=== PATIENT | male | born 1960 | race Caucasian/White ===

== ENCOUNTER → 2020-07-21 | Outpatient (CLI) | payer BC ==
--- NOTE | 2020-07-21 12:34 | MR ---
EXAMINATION TYPE: MR knee LT wo con DATE OF EXAM: 07/21/2020 COMPARISON: None HISTORY: Pain in left knee TECHNIQUE: Multiplanar, multisequence imaging of the left knee is performed without IV contrast. FINDINGS: MEDIAL MENISCUS: Anterior and posterior horns are intact without tear. Some increased signal within t he posterior horn of the medial meniscus does not extend to the articular surface may be degenerative change LATERAL MENISCUS: Anterior horn of the lateral meniscus shows some increased signal, there is a dimin utive appearance, sagittal image #10 shows suspected signal extending to the articular surface at the periphery laterally, coronal image #19 and shows some linear increased signal extending to the media l margin. Posterior horn shows at the medial margin some linear increased signal which may contact th e articular surface towards the root anchor. CRUCIATE LIGAMENTS: The anterior and posterior cruciate ligaments are intact and unremarkable. COLLATERAL LIGAMENTS: The medial collateral ligament and lateral collateral ligament complex are inta ct and unremarkable. EXTENSOR MECHANISM: Visualized quadriceps and patellar tendons are intact. EFFUSION: Small suprapatellar joint effusion is present POPLITEAL CYST: No popliteal/nielsen cyst. TRICOMPARTMENT SPACES: Maintained, there is some tricompartmental marginal spurring CARTILAGE: There is grade 2 to grade III chondromalacia present at the posterior patella, medial comp artment and lateral compartment BONE MARROW SIGNAL: No focal abnormal marrow signal is appreciated. OTHER: Subcutaneous edema is present anteriorly along the level of the anterior margin of the proxim al leg anterior to the patellar ligament consistent with soft tissue edema IMPRESSION: Osteoarthritis. Joint effusion. Possible degenerative tear of the lateral meniscus periph erally, possible some marginal fraying is present. Soft tissue swelling.
== END | disposition home or self-care (01) ==
LOC: RADMRIMAIN 10:32
PROVIDERS: ATTEND Family Medicine
DX: M17.12 Unilateral primary osteoarthritis, left knee (principal)

== ENCOUNTER → 2020-08-09 | Outpatient (CLI) | payer BC ==
[2020-08-09 18:25] LABS: Chol/HDL Ratio 4.8; LDL Cholesterol,Calculated 119.8 mg/dL (0.0-131.0); VLDL Calculation 36.2 mg/dL (5.00-40.00)
== END | disposition home or self-care (01) ==
LOC: LABWHC1 08:33
PROVIDERS: ATTEND Family Medicine
DX: Z12.5 Encounter for screening for malignant neoplasm of prostate (principal); E78.00 Pure hypercholesterolemia, unspecified
CPT/HCPCS: 36415; 80061; 84403

== ENCOUNTER → 2020-08-09 | Outpatient (CLI) | payer BC ==
[2020-08-09 09:59] LABS: Basophils % (A) 1 %; Eosinophils # (A) 0.1 k/uL (0-0.7); Eosinophils % (A) 2 %; HCT 45.2 % (39.0-53.0); HGB 14.6 gm/dL (13.0-17.5); Lymphocytes # (A) 1.7 k/uL (1.0-4.8); Lymphocytes % (A) 30 %; MCH 26.7 pg (25.0-35.0); MCHC 32.2 g/dL (31.0-37.0); MCV 82.7 fL (80.0-100.0); Mean Platelet Volume 6.4; Monocytes # (A) 0.4 k/uL (0-1.0); Monocytes % (A) 7 %; Neutrophils # (A) 3.4 k/uL (1.3-7.7); Neutrophils % (A) 59 %; Platelet Count 312 k/uL (150-450); RBC 5.47 m/uL (4.30-5.90); RDW 13.7 % (11.5-15.5); WBC 5.9 k/uL (3.8-10.6)
[2020-08-09 10:17] LABS: Potassium 4.4 mmol/L (3.5-5.1)
== END | disposition home or self-care (01) ==
LOC: LABPAT 08:30
PROVIDERS: ATTEND Orthopaedic Surgery
DX: Z01.812 Encounter for preprocedural laboratory examination (principal); M23.92 Unspecified internal derangement of left knee
CPT/HCPCS: 80051; 85025; 93005

== ENCOUNTER 2020-08-11 09:33 | Day surgery (SDC) | payer BC ==
[2020-08-09 11:33] VITALS: BMI 31.6
[~2020-08-11 09:33] MED LIST: LACTATED RINGERS 1,000 ML IV SCH; LIDOCAINE 1% (10MG/ML) FOR IV START INTRADERMA PRN
[2020-08-11 10:12] VITALS: RESP 16; TEMP 98.6
[2020-08-11] MEDS ORDERED: GLUCAGON 1 MG/ML VIAL ONE (11:06)
[2020-08-11] MEDS ORDERED: LIDOCAINE 1% INJ 10MG/ML (20 ML MDV) ONE (11:06)
[2020-08-11] MEDS ORDERED: PROPOFOL 10 MG/ML 20 ML VIAL IV ONE (11:06)
[2020-08-11] MEDS ORDERED: MIDAZOLAM 2 MG/2 ML VIAL ONE (11:06)
--- NOTE | 2020-08-11 11:13 | P.GSHP ---
History of Present Illness H&P Date: 08/11/20 Chief Complaint: Screening colonoscopy 60-year-old male presents today for screening colonoscopy. He denies any significant GI complaints patient has previous history of colon polyps. His last colonoscopy is a complete due to spasm of the bowel. Past Medical History Past Medical History: GERD/Reflux, Hyperlipidemia Additional Past Medical History / Comment(s): hx of colon polyps, current torn [facility] states awaiting sx on 09/01/20, hx Herniated Disc, prev hx of HTN no longer taking rx History of Any Multi-Drug Resistant Organisms: None Reported Past Surgical History: Hernia Repair, Orthopedic Surgery Additional Past Surgical History / Comment(s): mult hernia repair, surgery for BROKEN LEFT FEMUR, colonoscopy, EGD Past Anesthesia/Blood Transfusion Reactions: No Reported Reaction Smoking Status: Former smoker - Past Family History Mother Family Medical History: Cancer Additional Family Medical History / Comment(s): breast Father Family Medical History: Cancer Medications and Allergies Home Medications Medication Instructions Recorded Confirmed Type Ibuprofen [Motrin] 800 mg PO BID PRN 08/09/15 08/09/20 History Atorvastatin [Lipitor] 20 mg PO DAILY 05/13/18 08/09/20 History Omeprazole [PriLOSEC] 10 mg PO DIRECTED PRN 08/09/20 08/09/20 History Allergies Allergy/AdvReac Type Severity Reaction Status Date / Time buspirone HCl [From BuSpar] AdvReac Severe SEVERE Verified 08/11/20 10:12 [facility] - Exam Vital Signs Temp Pulse Resp BP Pulse Ox 98.6 F 80 16 146/92 97 08/11/20 10:11 08/11/20 10:11 08/11/20 10:11 08/11/20 10:11 08/11/20 10:11 - General well developed, well nourished, no distress - Eyes PERRL - ENT normal pinna - Neck no masses - Respiratory normal expansion - Cardiovascular Rhythm: regular - Abdomen Abdomen: soft, non tender Assessment and Plan Assessment: History: Polyps. We'll perform colonoscopy.
--- NOTE | 2020-08-11 11:26 | P.OP ---
Date of Procedure: 08/11/20 Preoperative Diagnosis: History of colon polyps Postoperative Diagnosis: Normal Colonoscopy Procedure(s) Performed: Colonoscopy Anesthesia: MAC Surgeon: Benson Cali Pathology: none sent Condition: stable Disposition: PACU Description of Procedure: PROCEDURE: The patient was placed on the endoscopy table in the lateral position. Digital rectal examination was performed which revealed no abnormalities. The prostate was symmetrical without nodules. Flexible colonoscope was then placed in the patient's anus and passed throughout the entire colon. The ileocecal valve was visualized. The cecum, ascending, transverse, descending and sigmoid colon were normal. The rectum was normal as well. There were no masses, polyps or diverticula noted in the entire colon. SUMMARY OF FINDINGS: Normal colonoscopy.
[2020-08-11 12:28] VITALS: BP 112/67; PULSE 68
== END 2020-08-11 12:40 | disposition home or self-care (01) ==
LOC: ORWHC2ENDO 09:33
PROVIDERS: ATTEND Surgery
DX: Z12.11 Encounter for screening for malignant neoplasm of colon (principal); K21.9 Gastro-esophageal reflux disease without esophagitis; E78.5 Hyperlipidemia, unspecified; Z86.010 Personal history of colon polyps; Z98.890 Other specified postprocedural states; Z79.899 Other long term (current) drug therapy; Z88.8 Allergy status to other drugs, medicaments and biological substances
CPT/HCPCS: J2250; J1610; J2001; J2704; G0121

== ENCOUNTER 2020-09-01 09:24 | Day surgery (SDC) | payer BC ==
[2020-08-12 15:42] VITALS: BMI 32.7
--- NOTE | 2020-09-01 08:22 | HP ---
HISTORY AND PHYSICAL REASON FOR ADMISSION: Surgery 09/01/2020. Krish Jiang is a 60-year-old gentleman seen with progressive left knee pain. We discussed options. He elected to proceed with arthroscopy. Consent was obtained. PAST MEDICAL HISTORY: Hyperlipidemia. PAST SURGICAL HISTORY: Herniorrhaphy, ORIF femur fracture. DAILY MEDICATIONS: Atorvastatin and ibuprofen. ALLERGIES: None. SOCIAL HISTORY: Denies current tobacco use. PHYSICAL EXAMINATION: Evaluation of the left knee: Range of motion 0 to 130. There is a mild effusion. Tenderness along the medial and lateral joint line. Positive medial Ann-Marie's. Positive lateral Ann-Marie's. Ligaments stable. Hip rotation without pain. Distal neurovascular exam is intact. RADIOGRAPHS: Radiographs of the left knee revealed moderate osteoarthritis of the left knee. MRI revealed lateral meniscal tear, osteoarthritis and intraarticular effusion. IMPRESSION: 1. Internal derangement of left knee with lateral meniscal tear. 2. Left knee osteoarthritis. 3. Hyperlipidemia. PLAN: Left knee arthroscopy with partial lateral meniscectomy and debridement. MMODL / IJN: [id number] /
[~2020-09-01 09:24] MED LIST changes: +DEXAMETHASONE SOD PHOSPHATE 4 MG/ML 1 ML VIAL IV ONE; -LIDOCAINE 1% (10MG/ML) FOR IV START INTRADERMA PRN; +ONDANSETRON 4 MG/2 ML VIAL IVP ONE
[2020-09-01] MEDS ORDERED: LIDOCAINE 1% (10MG/ML) FOR IV START INTRADERMA ONE (10:00)
[2020-09-01] MEDS ORDERED: SUCCINYLCHOLINE CHLORIDE 100 MG/5 ML SYR IV ONE (10:11)
[2020-09-01] MEDS ORDERED: BUPIVACAINE (PF) 0.25% 30 ML VIAL SQ ONE ×2 (10:11→10:45)
[2020-09-01] MEDS ORDERED: LIDOCAINE 1% INJ 10MG/ML (20 ML MDV) ONE (10:11)
[2020-09-01] MEDS ORDERED: MIDAZOLAM 2 MG/2 ML VIAL ONE (10:11)
[2020-09-01] MEDS ORDERED: PROPOFOL 10 MG/ML 20 ML VIAL IV ONE (10:11)
[2020-09-01] MEDS ORDERED: fentaNYL (PF) 50 MCG/ML 2 ML AMP ONE (10:11)
[2020-09-01] MEDS ORDERED: KETOROLAC 15 MG/ML 1 ML VIAL ONE (10:11)
[2020-09-01 11:00] VITALS: TEMP 96.8
--- NOTE | 2020-09-01 11:01 | P.OP ---
Date of Procedure: 09/01/20 Preoperative Diagnosis: Internal derangement left knee Postoperative Diagnosis: 1. Tear lateral meniscus left knee 2. Reactive synovitis medial, lateral and suprapatellar compartments left knee Procedure(s) Performed: 1. Arthroscopic partial lateral meniscectomy left knee 2. Arthroscopic partial synovectomy medial, lateral and suprapatellar compartments left knee Anesthesia: BRENDA, local Surgeon: Glenroy Saavedra Estimated Blood Loss (ml): 7 Pathology: none sent Condition: stable Disposition: PACU Indications for Procedure: 60-year-old patient seen with progressive left knee pain. After having treatment options discussed, he elected to proceed with arthroscopy. Operative Findings: See description of procedure Description of Procedure: Patient was taken to the operative suite. Patient underwent a general anesth etic by the department of anesthesia. Patient was given preoperative antibiotics. The left lower extremity was placed in a well-padded arthroscopic leg foster. The left leg was prepped and draped in the normal sterile orthopedic fashion. A lateral parapatellar and suprapatellar incision was made. Trochars were inserted. Arthroscopy was initiated. Suprapatellar pouch revealed diffuse thick reactive synovitis. The patellofemoral joint appeared equally congruently. There was grade 2 chondromalacia of the patella with no osteochondral tears present. The scope was guided into the medial gutter. No loose bodies or plica were identified. The scope was then guided into the medial compartment. A medial parapatellar incision was made. Trocar inserted followed by probe. The medial meniscus was probed and found to be stable. There were some grade 1 chondral malacia changes of the medial compartment. There was some reactive synovitis anteriorly. A motorize shaver was introduced and partial synovectomy was performed. The shaver was removed. There was good decompression synovitis. Scope and probe were then guided into the intercondylar notch. Cruciates were identified, probed and found to be stable. The scope and probe were then guided into lateral compartment. There was a large complex tear involving the anterior horn and midbody lateral meniscus. There was thick reactive synovitis anteriorly. There were grade 1 chondromalacia changes. I performed a partial lateral meniscectomy getting down to stable meniscal tissue. I performed a partial synovectomy decompressing the reactive synovitis. The residual meniscus was stable. There was good decompression of the synovitis. The scope was in guided back into the suprapatellar compartment. I introduced a motorized shaver into the superpatellar compartment. I debrided some piecemeal fragments of meniscus I encountered. I performed a partial synovectomy. Shaver was removed. There was good decompression of synovitis. Instruments were now removed from the joint. The joint was infiltrated with .25% Marcaine. Steri-Strips were applied to the portal sites. Sterile dressings were applied. The patient was placed into a MYKE hose. No tourniquet was utilized. The patient was awakened, transferred to a bed and taken to recovery stable satisfactory condition.
[2020-09-01] MEDS: HYDROmorphone 0.5 MG/0.5 ML SYRINGE IVP PRN ×3 (11:25→11:45)
[2020-09-01] MEDS ORDERED: LACTATED RINGERS 1,000 ML IV ONE (11:34)
[2020-09-01 11:41] VITALS: RESP 16
[2020-09-01] MEDS ORDERED: HYDROcodone/APAP 7.5-325MG 1 EACH TAB ONE (12:00)
[2020-09-01] MEDS ORDERED: HYDROcodone/APAP 7.5-325MG 1 EACH TAB PO ONE (12:01)
[2020-09-01 12:31] VITALS: BP 146/93; PULSE 67
== END 2020-09-01 12:41 | disposition home or self-care (01) ==
LOC: OR 09:24
PROVIDERS: ATTEND Orthopaedic Surgery
DX: M23.201 Derangement of unspecified lateral meniscus due to old tear or injury, left knee (principal); M65.862 Other synovitis and tenosynovitis, left lower leg; M17.12 Unilateral primary osteoarthritis, left knee; E78.5 Hyperlipidemia, unspecified; I10 Essential (primary) hypertension; K21.9 Gastro-esophageal reflux disease without esophagitis; Z98.890 Other specified postprocedural states; Z97.2 Presence of dental prosthetic device (complete) (partial); Z79.1 Long term (current) use of non-steroidal anti-inflammatories (NSAID); Z79.899 Other long term (current) drug therapy
CPT/HCPCS: 29881; 29876; J2250; J1100; J0690; J2405; J2001; J3010; J1885; J0330; J2704; J1170

== ENCOUNTER → 2021-08-31 | Outpatient (CLI) | payer BC ==
--- NOTE | 2021-09-03 12:23 | CTL ---
EXAMINATION TYPE: CT Low Dose Lung DATE OF EXAM ORDERED: 08/31/2021 HISTORY: Nicotine dependence. Lung cancer screening CT DLP: 159.[address] CTDI: 4.0 mGy Automated exposure control for dose reduction was used. SCREENING VISIT: Baseline COMPARISON: No previous CT scan is available for comparison. TECHNIQUE: Low dose computed tomography scan was performed through the chest at 1 mm thick sections a nd reconstructed images in multiple planes at 1 mm and [address] DIAGNOSTIC QUALITY: Satisfactory FINDINGS: LUNG NODULES: None. LUNGS: COPD: Severity: Mild Fibrosis: Severity: None Lymph nodes: No pathologically enlarged lymph nodes. Other findings: None RIGHT PLEURAL SPACE: Effusion: None Calcification: None Thickening: None Pneumothorax: None LEFT PLEURAL SPACE: Effusion: None Calcification: None Thickening: None Pneumothorax: None HEART: Heart Size: Normal Coronary Calcification: Moderate to marked Pericardial Effusion: None OTHER FINDINGS: Upper abdomen: None Bony thorax: None Supraclavicular region: Slightly enlarged thyroid gland, please correlate with thyroid function tests . Other: Scattered arterial atherosclerotic calcifications. IMPRESSION: No definite lung nodule or suspicious lesion. Incidental findings as described above. CT LUNG RAD AND CT CHEST RECOMMENDATION: Lung-Rad 1 Negative: Continue annual screening with LDCT in 12 months. S Modifier (other clinically significant findings): None
== END | disposition home or self-care (01) ==
LOC: RADCTMAIN 16:49
PROVIDERS: ATTEND Family Medicine
DX: Z12.2 Encounter for screening for malignant neoplasm of respiratory organs (principal); Z87.891 Personal history of nicotine dependence
CPT/HCPCS: 71271

== ENCOUNTER 2021-12-27 07:47 | Day surgery (SDC) | payer BC ==
[~2021-12-27 07:47] MED LIST changes: +ALPRAZolam 0.25 MG TAB PO PRN; +ALPRAZolam 0.5 MG TAB PO PRN; +ASPIRIN 325 MG TAB PO STA; +ATORVASTATIN 80 MG TAB PO STA; -DEXAMETHASONE SOD PHOSPHATE 4 MG/ML 1 ML VIAL IV ONE; +HEPARIN SODIUM,PORCINE 10,000 UNIT in SODIUM CHLORIDE 0.9% 1,000 ML IRRIGATION PRN; +HEPARIN SODIUM,PORCINE 2,500 UNIT in SODIUM CHLORIDE 0.9% 250 ML IRRIGATION PRN; -LACTATED RINGERS 1,000 ML IV SCH; +NITROGLYCERIN SL TABS 0.4 MG TAB SUBLINGUAL PRN; -ONDANSETRON 4 MG/2 ML VIAL IVP ONE; +SODIUM CHLORIDE 0.9% 1,000 ML in EMPTY BAG 1 BAG IV SCH
[2021-12-27 08:11] VITALS: RESP 18
[2021-12-27] MEDS ORDERED: LIDOCAINE 1% INJ 10MG/ML (30 ML VIAL-PF) SQ ONE ×2 (09:05→09:09)
[2021-12-27] MEDS ORDERED: fentaNYL (PF) 50 MCG/ML 2 ML AMP IV ONE (09:05)
[2021-12-27] MEDS ORDERED: VERAPAMIL SYRINGE (5 MG/10 ML) INTRAARTER ONE (09:10)
[2021-12-27] MEDS ORDERED: MIDAZOLAM 2 MG/2 ML VIAL IV ONE (09:10)
[2021-12-27] MEDS: HEPARIN SODIUM 1,000 UN/ML (10ML VL) IV ONE ×4 (09:17→10:12)
[2021-12-27] MEDS ORDERED: CLOPIDOGREL 75 MG TAB PO ONE (09:37)
[2021-12-27] MEDS ORDERED: IOPAMIDOL-370 125ML BTL INJ ONE (09:51)
[2021-12-27] MEDS ORDERED: IOPAMIDOL-370 100ML BTL INJ ONE ×2 (10:08)
[2021-12-27] MEDS ORDERED: MAG HYDROX/AL HYDROX/SIMETH 30 ML CUP PO PRN (10:20)
[2021-12-27] MEDS ORDERED: RX INFO: IV CONTRAST WAS GIVEN 1 EACH MISC MISCELLANE PRN (10:20)
[2021-12-27] MEDS ORDERED: ZOLPIDEM 5 MG TAB PO PRN (10:20)
[2021-12-27] MEDS ORDERED: NITROGLYCERIN SL TABS 0.4 MG TAB SUBLINGUAL PRN (10:20)
[2021-12-27] MEDS ORDERED: ATROPINE SULFATE 0.1 MG/ML 10ML SYRINGE IV PRN (10:20)
[2021-12-27] MEDS ORDERED: SODIUM CHLORIDE 0.9% 1,000 ML in EMPTY BAG 1 BAG IV SCH (10:30)
--- NOTE | 2021-12-27 10:32 | P.CARDCATH ---
Date of Procedure: 12/27/21 Description of Procedure: Cardiac Catheterization: The patient is a 61-year-old male with a known history of hypertension and hyperlipidemia who had an abnormal MPI and has been experiencing dyspnea on exertion. Recommendations were made regarding cardiac catheterization, the risks and the complications were discussed with the patient who is in full understanding and agreement. 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 Using Xylocaine Anesthesia and Seldinger technique, a 6-Omani sheath was introduced in the right radial artery . Subsequently, selective coronary angiography was performed using a 5-Omani 3.5 bend Lesley catheter. Multiple views of the coronary artery including hemiaxial views were obtained. The left Lesley catheter was used to cross the aortic valv e and LVEDP was calculated. Following that a 6-Omani 0.75 AL guiding catheter was introduced and the ostium of the RCA was cannulated. A 0.014 balanced medium weight J wire was advanced and positioned distally subsequently 3.0 x 12 mm NC Treck balloon was advanced and one inflation at 10 james was done, a 4.0 x 23 mm Xience wm point stent was advanced and deployed at 16 james after removing the balloon and IVUS [place] eye [place] catheter was introduced and images were performed, after removing the catheter a 4.5 x 15 mm NC Treck balloon was advanced into inflation at 12 james were performed. Following that, catheter and sheath were removed. Hemostasis was obtained with deployment of TR band . There was no immediate complication. Patient was returned to room in stable condition. Of note, the patient received a total of 9000 units of intravenous heparin as well as intra-arterial verapamil. He received a loading dose of clopidogrel, his ACT was monitored. He had no chest discomfort or EKG changes with the inflation. During the procedure attempt to perform a Doppler evaluation was unsuccessful because of failure of the instrument. Findings: Left main: This is a large size vessel, bifurcating into LAD and left circumflex, left main has no high-grade stenosis LAD: This is a large size vessel, tapers down in the distal third, gives rise to 2 diagonal branch, the LAD has mild disease of 10-20% in the midsegment Left circumflex: This is a nondominant vessel, giving rise to a large obtuse marginal branch, the proximal left circumflex has 20% plaque the rest of the vessel has no high-grade stenosis RCA: This is a large dominant vessel, bifurcating into PDA and PLV, the proximal RCA has an eccentric 60-70% stenosis with evidence of an ulcerated plaque, the PLV has a 50% plaque, the rest of the vessel has no high-grade stenosis Left Ventriculogram: Not performed Hemodynamics: There was no gradient across the aortic valve , LVEDP was 20-22 mmHg Conclusion: 1. Significant disease in the proximal RCA with evidence of an ulcerated plaque 2. Successful stenting of the proximal RCA with reduction of the stenosis from 70% to less than 5% 3. IVUS imaging 4. Mild disease in the LAD and left circumflex Recommendations: Have recommended dual antiplatelet treatment with aspirin and clopidogrel for 6 months, aggressive coronary risk modification. The findings and the rec ommendations were discussed with the patient and the family and they were in full understanding and agreement. Duration of sedation is 58 minutes.
[2021-12-27 14:14] VITALS: BP 149/84; PULSE 68
[2021-12-28] MEDS ORDERED: ASPIRIN 81 MG PO SCH (09:00)
[2021-12-28] MEDS ORDERED: ATORVASTATIN 40 MG TAB PO SCH (09:00)
[2021-12-28] MEDS ORDERED: CLOPIDOGREL 75 MG TAB PO SCH (09:00)
[2021-12-28] MEDS ORDERED: METOPROLOL TARTRATE 25 MG TAB PO SCH (09:00)
== END 2021-12-27 14:50 | disposition home or self-care (01) ==
LOC: CATHCVL 07:47
PROVIDERS: ATTEND Internal Medicine Interventional Cardiology
DX: I25.10 Atherosclerotic heart disease of native coronary artery without angina pectoris (principal); I10 Essential (primary) hypertension; E78.5 Hyperlipidemia, unspecified; Z79.890 Hormone replacement therapy; Z79.899 Other long term (current) drug therapy
CPT/HCPCS: 92978; 93458; C9600; C1769 ×3; C1887; C1894; C1725 ×2; C1753; C1874 ×2; J2250; J2001; J3010; J1644; Q9967 ×2

== ENCOUNTER → 2023-03-27 | Outpatient (CLI) | payer BC ==
[2023-03-27 11:19] LABS: ALT 29 U/L (10-49); AST 19 U/L (14-35); Chol/HDL Ratio 5.67 Ratio; LDL Cholesterol,Calculated 171.7 mg/dL (0.0-131.0)
== END | disposition home or self-care (01) ==
LOC: LABWHC1 07:48
PROVIDERS: ATTEND Nurse Practitioner Adult Health
DX: E78.2 Mixed hyperlipidemia (principal)
CPT/HCPCS: 36415; 80061; 84450; 84460

== ENCOUNTER → 2023-05-17 | Outpatient (CLI) | payer BC ==
--- NOTE | 2023-05-17 16:10 | CTL ---
EXAMINATION TYPE: CT Low Dose Lung DATE OF EXAM ORDERED: 05/17/2023 HISTORY: Lung cancer screening CT DLP: 102.[address] CTDI: 2.6 mGy Automated exposure control for dose reduction was used. SCREENING VISIT: Second COMPARISON: 08/31/2021 TECHNIQUE: Low dose computed tomography scan was performed through the chest at 1 mm thick sections a nd reconstructed images in multiple planes at 1 mm and [address] DIAGNOSTIC QUALITY: Satisfactory FINDINGS: There is a stable calcified granuloma in the right middle lobe. There are no new or suspicious lung m asses or nodules. There is no abnormal airspace/consolidative density or abnormal interstitial density. There is no bro nchiectasis. There is no pleural effusion, pleural thickening or pneumothorax. There is aneurysmal dilatation of ascending thoracic aorta which measures 4.1 cm. There is no mediastinal, hilar or axillary adenopathy. Limited scanning through the upper abdomen reveals no gross abnormality. No focal osseous lesions are seen. IMPRESSION: 1. Lung metastases category 2, benign. Continue routine screening yearly intervals. 2. No acute cardiac disease. 3. 4.1 cm aneurysmal dilatation of ascending thoracic aorta.
== END | disposition home or self-care (01) ==
LOC: RADCTMAIN 14:49
PROVIDERS: ATTEND Family Medicine
DX: Z12.2 Encounter for screening for malignant neoplasm of respiratory organs (principal); Z87.891 Personal history of nicotine dependence; C78.00 Secondary malignant neoplasm of unspecified lung; I71.20 Thoracic aortic aneurysm, without rupture, unspecified
CPT/HCPCS: 71271

== ENCOUNTER → 2024-04-06 | Outpatient (CLI) | payer BC ==
--- NOTE | 2024-04-07 06:20 | MR ---
EXAMINATION TYPE: MR shoulder RT wo con DATE OF EXAM: 04/06/2024 7:39 PM COMPARISON: Outside right shoulder x-ray March 31, 2024 CLINICAL INDICATION: Male, 63 years old with history of M25.511, Right shoulder pain. Difficulty rais ing arm overhead. IV Contrast: cc (None if empty) TECHNIQUE: Multiplanar, multisequence imaging of the right shoulder is performed without contrast. FINDINGS: Rotator Cuff: Slight increased signal in the supraspinatus tendon. More prominent increased signal in the infraspinatus tendon with some surrounding fluid near the myotendinous junction anteriorly. Hete rogeneous increased signal but intact subscapularis tendon. Rotator cuff muscle bulk is preserved. Acromioclavicular Joint: Mild to moderate narrowing with subchondral cystic change. Moderate capsular hypertrophy. Loss of underlying fat plane is noted. Glenohumeral Joint: Small joint effusion. No significant spurring. Labrum: Increased signal superior labrum suggests degenerative tear. Biceps Tendon: The long head of biceps is in normal location within bicipital groove. Bone marrow signal: Subchondral cystic change at the acromioclavicular joint. Other: No additional significant abnormality is appreciated. IMPRESSION: 1. Mild tendinosis of supraspinatus tendon. More prominent tendinosis of subscapularis and infraspina tus tendons. 2. Moderate AC joint arthropathy with suggestion of underlying impingement, correlate clinically. 3. Degenerative superior labral tear. [facility], , 04/07/2024 6:17 AM
== END | disposition home or self-care (01) ==
LOC: RADMRIMAIN 18:59
PROVIDERS: ATTEND Orthopaedic Surgery
DX: M19.011 Primary osteoarthritis, right shoulder (principal); M67.813 Other specified disorders of tendon, right shoulder; M25.811 Other specified joint disorders, right shoulder

== ENCOUNTER → 2024-05-23 | Outpatient (CLI) | payer BC ==
[2024-05-24 06:48] LABS: Basophils # (A) 0.08 X 10*3/uL (0.00-0.10); Basophils % (A) 1.3 %; Eosinophils # (A) 0.13 X 10*3/uL (0.04-0.35); Eosinophils % (A) 2.1 %; HCT 43.9 % (39.6-50.0); HGB 14.5 g/dL (13.0-17.0); Lymphocytes # (A) 1.77 X 10*3/uL (0.90-5.00); Lymphocytes % (A) 29.1 %; MCH 27.4 pg (27.0-32.0); MCV 82.8 FL (80.0-97.0); Mean Platelet Volume 9.1 FL (9.5-12.2); Monocytes # (A) 0.68 X 10*3/uL (0.20-1.00); Monocytes % (A) 11.2 %; NRBC Per 100 WBC 0 X 10*3/uL (0.00-0.01); Neutrophils # (A) 3.38 X 10*3/uL (1.80-7.70); Neutrophils % (A) 55.6 %; Platelet Count 303 X 10*3/uL (140-440); RDW 13.8 % (11.5-14.5); WBC 6.08 X 10*3/uL (4.50-10.00)
== END | disposition home or self-care (01) ==
LOC: LABWHC1 07:23
PROVIDERS: ATTEND Orthopaedic Surgery
DX: Z01.812 Encounter for preprocedural laboratory examination (principal); M75.41 Impingement syndrome of right shoulder
CPT/HCPCS: 85025

== ENCOUNTER 2024-06-03 05:41 | Day surgery (SDC) | payer BC ==
[2024-06-01 09:05] VITALS: BMI 36.5
--- NOTE | 2024-06-02 12:56 | HP ---
HISTORY AND PHYSICAL Surgery is scheduled for 06/03/2024. HISTORY OF PRESENT ILLNESS: Krish Jiang is a 64-year-old gentleman seen with progressive right shoulder pain. We discussed options regarding treatment. He elected to proceed with right shoulder arthroscopy. Consent regarding the procedure was obtained. Cardiac clearance was provided by Dr. Ritter. PAST MEDICAL HISTORY: Hypertension, hyperlipidemia, cardiovascular disease, aortic aneurysm. PAST SURGICAL HISTORY: Herniorrhaphy, ORIF of femur fracture, cardiac catheterization with stent insertion. DAILY MEDICATIONS: 1. Aspirin. 2. Ibuprofen. 3. Losartan. 4. Omeprazole. 5. Toprol. 6. Zepbound. ALLERGIES: None. SOCIAL HISTORY: Denies tobacco use. PHYSICAL EVALUATION OF THE RIGHT SHOULDER: Flexion is 150 degrees. Abduction is 120 degrees. External rotation is 45 degrees with pain and weakness. He is tender along the anterolateral acromion and rotator cuff insertion. Impingement is positive at 80 degrees. Cross-body adduction sign is positive. Drop-arm sign is positive. Distal neurovascular exam is intact. IMAGING STUDIES: Radiographs of the right shoulder, type 2 acromion, severe acromioclavicular joint osteoarthritis and cystic changes of the tuberosity. Right shoulder MRI, labral tear, acromioclavicular joint osteoarthritis, impingement, rotator cuff tendinitis. IMPRESSION: 1. Right shoulder impingement with labral tear. 2. Right shoulder acromioclavicular joint osteoarthritis. 3. Hypertension. 4. Cardiovascular disease. PLAN: Right shoulder arthroscopy with subacromial decompression, labral debridement versus repair, Davi procedure. MMODL / IJN: [id number] /
[2024-06-03 06:48] LABS: Glucose,Whole Blood 97 mg/dL (70-110)
[2024-06-03] MEDS: ONDANSETRON 4 MG/2 ML VIAL IVP ONE (06:52)
[2024-06-03] MEDS: DEXAMETHASONE SOD PHOSPHATE 4 MG/ML 1 ML VIAL IV ONE (06:52)
[2024-06-03] MEDS: LACTATED RINGERS 1,000 ML IV SCH (06:52)
[2024-06-03] MEDS: IV FLUID CONTINUATION 1,000 ML IV ONE (06:53)
[2024-06-03] MEDS ORDERED: HYDROmorphone 0.5 MG/0.5 ML SYRINGE IVP PRN (07:00)
[2024-06-03] MEDS: MIDAZOLAM 2 MG/2 ML VIAL IVP ONE (07:03)
[2024-06-03] MEDS: fentaNYL (PF) 50 MCG/ML 2 ML AMP IVP ONE (07:18)
[2024-06-03] MEDS ORDERED: ROCURONIUM 10 MG/ML (5 ML VIAL) IV ONE (07:25)
[2024-06-03] MEDS ORDERED: GLYCOPYRROLATE 0.2 MG/ML 2 ML VIAL ONE (07:25)
[2024-06-03] MEDS ORDERED: PHENYLEPHRINE 10 MG/ML VIAL ONE (07:25)
[2024-06-03] MEDS ORDERED: ROPIVACAINE 5 MG/ML 30 ML VIAL ONE (07:25)
[2024-06-03] MEDS ORDERED: DEXAMETHASONE SOD PHOSPHATE 4 MG/ML 1 ML VIAL ONE (07:25)
[2024-06-03] MEDS ORDERED: LIDOCAINE 1% INJ 10MG/ML (20 ML MDV) ONE (07:25)
[2024-06-03] MEDS ORDERED: NEOSTIGMINE 1 MG/ML 10 ML VIAL ONE (07:25)
[2024-06-03] MEDS ORDERED: SUCCINYLCHOLINE CHLORIDE 200 MG/10 ML VIAL IV ONE (07:25)
[2024-06-03] MEDS ORDERED: PROPOFOL 10 MG/ML 20 ML VIAL IV ONE (07:25)
[2024-06-03] MEDS: LACTATED RINGERS 1,000 ML IV ONE (08:50)
--- NOTE | 2024-06-03 09:15 | P.OP ---
Date of Procedure: 06/03/24 Preoperative Diagnosis: Right shoulder impingement Postoperative Diagnosis: 1. Right shoulder rotator cuff tear 2. Right shoulder impingement 3. Right shoulder bicipital tendinitis/partial tear 4. Right shoulder acromioclavicular joint osteoarthritis 5. Right shoulder labral tear Procedure(s) Performed: 1. Right shoulder arthroscopic rotator cuff repair 2. Right shoulder arthroscopic subacromial decompression 3. Right shoulder arthroscopic biceps tenodesis 4. Right shoulder arthroscopic Davi procedure 5. Right shoulder arthroscopic debridement labral tear Implants: 2Arthrex 4.75 swivel lock anchors Anesthesia: GETA, regional (Interscalene block) Surgeon: Glenroy Saavedra Domestic Freight Forwarder #1: Herbie Mckeon Estimated Blood Loss (ml): 8 Pathology: none sent Condition: stable Disposition: PACU Indications for Procedure: 64-year-old gentleman seen with progressive right shoulder pain. After treatment options were discussed, he elected to proceed with arthroscopy. Operative Findings: See description of procedure Description of Procedure: Patient underwent an interscalene block by department of anesthesia. The patient was then taken to the operative suite. The patient underwent a general anesthetic by the department of anesthesia. The patient was placed into a lateral position and secured. There was appropriate padding of the bony prominence. Right shoulder was then prepped and draped in normal sterile orthopedic fashion. We placed the extremity in 10 pounds of longitudinal traction. A posterior incision was now made for a posterior working portal site. The trocar and cannula were inserted into the glenohumeral joint. Arthroscopy was initiated. Spinal needle was now inserted anteriorly, to ascertain the anterior working portal site. An incision was now made in that area, a trocar was inserted followed by a probe. There was superficial tearing of the superior labrum. There was hyperemia and partial tearing long head biceps tendon. There was some grade I chondromalacia changes of the glenoid fossa and the humeral head was unremarkable. At this point I used a motorized shaver debride out the superficial labral tear. At this point I decided to proceed with arthroscopic biceps tenodesis. I placed a cannula through the anterior portal site. I passed a loop and tack type stitch to the biceps tendon. I released the biceps tendon from the superior labral anchor. With the assistance of Reynold MARI punch hole at the interval area. The suture line was not passed through the eyelet of an Arthrex 4.75 swivel lock anchor. I placed the eyelet into the prepunch hole. I held in position while Reynold MARI tensioned the suture and deployed the anchor with good fixation noted. The residual suture limb was clipped. We had a stable appearing biceps tenodesis. I again probed the labrum and it was stable. Instruments were now removed from the glenohumeral joint. Utilizing the posterior working portal site, the trocar and cannula were inserted into the subacromial space. Arthroscopy initiated. I made an incision 2 fingerbreadths lateral to the acromion. I introduced my trocar followed by my ArthroCare ablator. I now began ablating thick subacromial bursal tissue, which exposed the undersurface of the anterior acromion. There was diminished subacromial space. There was a very prominent anterior acromion. A motorized bur was introduced and a subacromial decompression was performed. I also excised some osteophytes off the inferior aspect of the distal clavicle. The AC joint was visualized and noted to be fairly arthritic. The motorized bur was introduced in the anterior portal site and a Davi procedure was performed without difficulty, decompressing the AC joint nicely. I turned my attention to the rotator cuff. There was a 1 cm rotator cuff tear. I debrided the margins getting down to stable tendon tissue. The defect/tear measured just under 1.5 cm and was freely mobile over the footprint. I introduced my motorized bur and abraded the footprint area, getting some petechial bleeding. With the assistance of Reynold MARI passed 2 everted mattress sutures through good bites of rotator cuff tendon. I punched a hole in the footprint area for insertion of an anchor. All 4 limbs of suture were passed through the eyelet of an Arthrex 4.75 swivel lock anchor. I placed the eyelet into the prepunched hole and held that in position while Reynold MARI tensioned all 4 limbs of suture and deployed the anchor with good fixation noted. All residual suture limbs were now clipped. We had good compression of the tendon along the entire footprint. Instruments now removed from the portal sites. All portal sites were approximated with nylon suture. Sterile dressings were applied followed by a shoulder sling. Herbie MARI assisted in all aspects of this case. The patient was awakened, transferred to a bed, and taken to recovery in stable condition.
[2024-06-03 09:24] VITALS: TEMP 96.9
[2024-06-03 10:26] VITALS: RESP 16
[2024-06-03 10:54] VITALS: BP 130/86; PULSE 79
--- NOTE | 2024-06-03 11:09 | P.ANPRN ---
Procedure Note - Anesthesia - Nerve Block Performed Right Interscalene Single Time Out Performed: Yes Date of Procedure: 06/03/24 Procedure Start Time: : Procedure Stop Time: Location of Patient: PreOp Indication: Acute Post-Operative Pain, Requested by Surgeon Sedation Type: Sedate with meaningful contact maintained Preparation: Sterile Prep Position: Supine Needle Types: Pajunk Needle Gauge: 21 Ultrasound used to visualize needle placement: Yes Ultrasound used to observe medication spread: Yes Blood Aspirated: No Pain Paresthesia on Injection Noted: No Resistance on Injection: Normal Image Stored and Saved: Yes Events: Uneventful and Well Tolerated (ropi .5% 20cc plus dexamethasone 4mg)
== END 2024-06-03 11:25 | disposition home or self-care (01) ==
LOC: OR 05:41
PROVIDERS: ATTEND Orthopaedic Surgery
DX: M75.101 Unspecified rotator cuff tear or rupture of right shoulder, not specified as traumatic (principal); S46.111A Strain of muscle, fascia and tendon of long head of biceps, right arm, initial encounter; M75.21 Bicipital tendinitis, right shoulder; S43.431A Superior glenoid labrum lesion of right shoulder, initial encounter; M19.011 Primary osteoarthritis, right shoulder; M25.811 Other specified joint disorders, right shoulder; M94.211 Chondromalacia, right shoulder; G89.18 Other acute postprocedural pain; I10 Essential (primary) hypertension; I25.10 Atherosclerotic heart disease of native coronary artery without angina pectoris; Z95.5 Presence of coronary angioplasty implant and graft; E78.5 Hyperlipidemia, unspecified; Z79.82 Long term (current) use of aspirin; Z79.85 Long-term (current) use of injectable non-insulin antidiabetic drugs; Z79.620 Long term (current) use of immunosuppressive biologic; Z79.899 Other long term (current) drug therapy; Z95.828 Presence of other vascular implants and grafts; X58.XXXA Exposure to other specified factors, initial encounter
CPT/HCPCS: 29827; 29828; 29826; 29824; 64415; C1713 ×3; J2250; J0330; J1100; J2710; J0690; J2405; J2003; J3010; J2795; J2704; J2371; J1596

== ENCOUNTER → 2024-07-21 | Outpatient (CLI) | payer BC ==
[2024-07-21 11:51] LABS: Appearance,Urine Clear (Clear); Bilirubin,Urine Negative (Negative); Blood,Urine Trace (Negative); Color,Urine Yellow; Glucose,Urine (UA) Negative (Negative); Hyaline Casts,Urine 1 /lpf (0-2); Ketones,Urine Negative (Negative); Leukocyte Esterase,Urine Trace (Negative); Mucus,Urine Many /hpf; Nitrite,Urine Negative (Negative); PH, Urine 5.5 (5.0-8.0); Protein,Urine Negative (Negative); RBC,Urine <1 /hpf (0-5); Specific Gravity,Urine 1.026 (1.001-1.035); Urobilinogen,Urine <2.0 mg/dL (<2.0); WBC,Urine 5 /hpf (0-5)
[2024-07-21 14:45] LABS: HCT 41.3 % (39.6-50.0); HGB 13.5 g/dL (13.0-17.0); MCHC 32.7 g/dL (32.0-37.0); MCV 82.6 FL (80.0-97.0); Mean Platelet Volume 8.9 FL (9.5-12.2); NRBC Per 100 WBC 0 X 10*3/uL (0.00-0.01); Platelet Count 336 X 10*3/uL (140-440); RDW 14.1 % (11.5-14.5); WBC 6.89 X 10*3/uL (4.50-10.00)
[2024-07-21 15:46] LABS: ALT 50 U/L (10-49); AST 24 U/L (14-35); Albumin 4.3 g/dL (3.8-4.9); Albumin/Globulin Ratio 1.59 Ratio (1.60-3.17); Alkaline Phosphatase 99 U/L (41-126); Blood Urea Nitrogen 13.4 mg/dL (9.0-27.0); Calcium 9.1 mg/dL (8.7-10.3); Carbon Dioxide 23.7 mmol/L (21.6-31.8); Chloride 107 mmol/L (96-109); Chol/HDL Ratio 2.74 Ratio; Globulin 2.7 g/dL (1.6-3.3); Glucose 97 mg/dL (70-110); LDL Cholesterol,Calculated 45.3 mg/dL (0.0-131.0); Potassium 4.1 mmol/L (3.5-5.5); Prostate Specific Antigen 3.14 ng/mL (0.000-4.500); Sodium 143 mmol/L (135-145); Total Bilirubin 0.5 mg/dL (0.3-1.2)
== END | disposition home or self-care (01) ==
LOC: LABWHC1 09:14
PROVIDERS: ATTEND Family Medicine
DX: Z00.00 Encounter for general adult medical examination without abnormal findings (principal)
CPT/HCPCS: 36415; 80053; 80061; 81001; 82306; 83036; 84153; 84443; 85027

== ENCOUNTER → 2024-07-27 | Outpatient (CLI) | payer BC ==
[2024-07-27 21:07] LABS: Prostate Specific Antigen 2.68 ng/mL (0.000-4.500)
== END | disposition home or self-care (01) ==
LOC: LABWHC1 13:59
PROVIDERS: ATTEND Family Medicine
DX: R74.8 Abnormal levels of other serum enzymes (principal); R97.20 Elevated prostate specific antigen [PSA]
CPT/HCPCS: 36415; 84153; 84460